=== PATIENT | male | born 1980 | race Caucasian/White ===

== ENCOUNTER 2019-04-22 14:37 | Emergency (ER) | payer BC, OTHER ==
[~2019-04-22] VITALS: Ht 165.1 cm; Wt 104.3 kg
[2019-04-22] MEDS ORDERED: SERTRALINE HCL50 MG PO (15:02)
[2019-04-22] MEDS ORDERED: XANAX 0.25 MG0.25 MG PO (15:03)
[2019-04-22 15:18] LABS: ABSOLUTE NEUTROPHILS 6.1 thou/uL (1.4-8.2); BASOPHILS 0.7 % (0.0-2.0); EOSINOPHILS 1.9 % (0.0-3.0); HEMATOCRIT 44.8 % (42.0-52.0); HEMOGLOBIN 15.3 gm/dL (14.0-18.0); LYMPHOCYTES 22.8 % (24.0-44.0); MCHC 34.2 g/dL (28.0-37.0); MCV 81.9 fL (80.0-100.0); MONOCYTES 6.4 % (1.0-8.0); PLATELET COUNT 216 thou/uL (150-400); POLYS 68.2 % (36.0-66.0); RBC 5.47 mil/uL (4.50-6.00)
[2019-04-22 15:26] LABS: ANION GAP 10 mmol/L (7-16); BUN 10 mg/dL (7-18); CALCIUM 9.2 mg/dL (8.5-10.1); CHLORIDE 103 mmol/L (98-107); CO2 26 mmol/L (21-32); GLUCOSE 90 mg/dL (74-106); POTASSIUM 4.1 mmol/L (3.5-5.1); SODIUM 139 mmol/L (136-145)
[2019-04-22 15:34] LABS: TROPONIN-I <0.06 ng/mL (<0.06)
[2019-04-22 17:06] VITALS: BP 112/68
--- NOTE | 2019-04-23 16:09 | EKG ---
[place] [address] [address] [facility] [place] [address] ELECTROCARDIOGRAM REPORT Name: SANTANA BAXTER [facility] [id number] ������������������ Admission: 04/22/19 ������������������ Attend Phys: Discharge: 04/22/19 ������������������ Date of : 78 Report #: [id number] ����������������������������������������������������������������� [id number] THIS REPORT FOR: //name// [facility] ED Test Date: 2019-04-22 Test Time: 15:01:02 Pat Name: SANTANA BAXTER Department: Room: Gender: Crew Leader/Control Room Operator: DEX : 1980 Requested By: Jorge Alcala Order Number: [id number] MD: Nik Bullard Measurements Intervals [place] Rate: 102 P: 5 HI: 139 QRS: 37 QRSD: 93 T: -12 QT: 333 QTc: 434 Interpretive Statements Sinus tachycardia Borderline T abnormalities, inferior leads No previous ECG available for comparison Electronically Signed On 04-23-2019 16:08:56 CDT by Nik Bullard [email or web address] ��������������������������������������������� <ELECTRONICALLY SIGNED> ���������������������������������������� By: Nik Bullard MD ��������������������������������������������� 04/23/19 1608 1501 1501 Nik Bullard MD /EPI
== END 2019-04-22 17:06 | disposition home or self-care (01) ==
LOC: ER 14:37
PROVIDERS: Emergency Medicine
DX: R07.89 Other chest pain (principal); F41.9 Anxiety disorder, unspecified

== ENCOUNTER → 2019-05-08 | Outpatient (CLI) | payer BC, OTHER ==
[~2019-05-08] MED LIST: SERTRALINE HCL50 MG PO; XANAX 0.25 MG0.25 MG PO
== END ==
LOC: MRI 10:14
DX: M47.812 Spondylosis without myelopathy or radiculopathy, cervical region (principal); M25.78 Osteophyte, vertebrae; M25.511 Pain in right shoulder; F41.9 Anxiety disorder, unspecified; M25.512 Pain in left shoulder